=== PATIENT | female | born 1985 | race Caucasian/White ===

== ENCOUNTER 2020-08-31 11:34 | Emergency (ER) | payer SELFPAY | END 2020-08-31 12:09 | disposition home or self-care (01) | LOC: NAV ERS 11:34 | DX: H65.91 Unspecified nonsuppurative otitis media, right ear (principal); J45.909 Unspecified asthma, uncomplicated; F17.210 Nicotine dependence, cigarettes, uncomplicated | CPT/HCPCS: 99282 ==